=== PATIENT | female | born 1970 | race Asian ===

== ENCOUNTER 2018-08-30 05:48 | Day surgery (SDC) | payer MEDICARE, OTHER ==
[~2018-08-30] VITALS: Ht 157.5 cm; Wt 57.0 kg
[~2018-08-30 05:48] MED LIST: CALC600T24 PO; DIVA-16 PO; DOCU250C68 PO; ERGO2000 PO; LEVO88TA3 PO; LIPA1CAP6 PO; LORA-444 PO; METF-849 PO; OLAN15TA7 PO; OLAN7.5T5 PO; POLY17PO28 PO; TOPI100T11 PO; [UNRECOGNIZED DRUG - OTHER]
[2018-08-30 07:11] VITALS: Ht 157.5 cm; Wt 57.0 kg
--- NOTE | 2018-08-30 07:32 | PREAC ---
Date/Time of Note Date/Time of Note DATE: 08/30/18 TIME: 07:31 Anesthesia Eval and Record Evaluation Time Pre-Procedure Interview DATE: 08/30/18 TIME: 07:31 Age 48 Sex female NPO: 8 hrs Preoperative diagnosis screening Planned procedure colonoscopy Past Medical History Past Medical History: Includes (congenital rubella) Cardio: HTN Endo: Diabetes Hepatic: Hepatitis GI: GERD Heme: Anemia, Other (thalassemia) Surgery & Anesthesia Issues No known issue Meds Anticoagulation: No Beta Emelyn within 24 hr: No Reason Beta Emelyn not given: Pt. not on B-Emelyn Reported Medications Metformin* (Glucophage*) 500 Mg Tab, 500 MG PO WITH LUNCH DINNER, #60 TAB 05/19/16 Levothyroxine Sodium* (Levothyroxine Sodium*) 88 Mcg Tablet, 88 MCG PO BEFORE BREAKFAST, #30 TAB 05/19/16 Docusate Sodium* (Dok*) 250 Mg Capsule, 250 MG PO BID, #60 CAP 05/19/16 [id number]* (Wanda PINTO* 24,000) 24,000 L-76,000-120,000 Unit Capsule.dr, 1 CAP PO WITH MEALS, CAP 05/19/16 Lorazepam* (Ativan*) 2 Mg Tablet, 2 MG PO BID PRN for AGITATION, #30 TAB 05/19/16 Olanzapine* (Olanzapine*) 7.5 Mg Tablet, 7.5 MG PO DAILY, #30 TAB 05/19/16 Olanzapine* (Olanzapine*) 15 Mg Tablet, 15 MG PO DAILY, TAB 05/19/16 Calcium Carbonate* (Calcium Carbonate*) 600 MG Ca Tab, 600 MG PO, TAB 05/19/16 Polyethylene Glycol* (Polyethylene Glycol*) 17 Gm Powd.pack, 8.5 GM PO DAILY, #30 PACKET 05/19/16 Ergocalciferol (Vitamin D2) (VITAMIN D2) 2,000 Unit Tablet, 2000 UNIT PO, TAB 05/19/16 [Vread] No Conflict Check 05/19/16 Topiramate* (Topiramate*) 100 Mg Tablet, 100 MG PO BID, TAB 05/19/16 Discontinued Reported Medications Divalproex Sodium* (Divalproex Sodium*) 500 Mg Tablet.dr, 500 MG PO QID, #120 TAB 05/19/16 Meds reviewed: Yes Allergies Coded Allergies: Latex, Natural Rubber (Verified Allergy, Intermediate, RASH, 08/30/18) brompheniramine (Verified Allergy, Intermediate, RASH, 08/30/18) divalproex sodium (Verified Allergy, Intermediate, RASH, 08/30/18) Uncoded Allergies: TAPE (Allergy, Intermediate, RASH, 08/30/18) Allergies Reviewed: Yes Labs/Studies Labs Reviewed: Reviewed by anesthesiologist test: Negative Pre-procedure Exam Airway: Adequate mouth opening, Adequate thyromental dist Mallampati: Mallampati II Teeth: Normal Lung: Normal Heart: Normal ASA Physical Status ASA physical status: 2 Emergency: None Planned Anesthetic General/MAC: MAC Planned Pain Management Parenteral pain med Pre-operative Attestations Prior to commencing anesthesia and surgery, the patient was re-evaluated, there was verification of: *The patient's identity *The results of appropriate recent lab work and preoperative vital signs *The above evaluation not changing prior to induction *Anesthetic plan, risk benefits, alternative and complications discussed with patient/family; questions answered; patient/family understands, accepts and wishes to proceed. MICHELLE SMIMONS MD Aug 30, 2018 07:32
[2018-08-30] MEDS ORDERED: PROPOFOL 40 ML ONE (08:57)
[2018-08-30] MEDS ORDERED: LIDOCAINE 2% (SDV) 5 ML INJ ONE (08:57)
[2018-08-30 09:00] VITALS: BP 141/74; PULSE 85; RESP 22
[2018-08-30] MEDS ORDERED: ONDANSETRON 4 MG INJ IV PRN (09:00)
--- NOTE | 2018-08-30 09:33 | PAC ---
Date/Time of Note Date/Time of Note DATE: 08/30/18 TIME: 09:33 Post-Anesthesia Notes Post-Anesthesia Note Last documented vital signs Vital Signs Date Temp Pulse Resp B/P (MAP) Pulse Ox O2 O2 Flow FiO2 Time Delivery Rate 08/30/18 96.9 85 22 141/74 100 Room Air 09:00 (96) Activity: WNL Respiratory function: WNL Cardiovascular function: WNL Mental status: Baseline Pain reasonably controlled: Yes Hydration appropriate: Yes Nausea/Vomiting absent: Yes Comments BP: 139/88 HR: 96 RR: 15 T: 98 SaO2: 100% MICHELLE SIMMONS MD Aug 30, 2018 09:33
[2018-08-30] MEDS ORDERED: EPHEDrine SULFATE 50 MG/5 ML SYG ONE (09:40)
[2018-08-30 09:54] VITALS: BP 149/89; PULSE 83; RESP 24
== END 2018-08-30 15:48 | disposition home or self-care (01) ==
LOC: GIL 05:48
PROVIDERS: ATTEND Internal Medicine Gastroenterology
DX: Z12.11 Encounter for screening for malignant neoplasm of colon (principal); K64.8 Other hemorrhoids; K63.5 Polyp of colon; E11.9 Type 2 diabetes mellitus without complications; I10 Essential (primary) hypertension
CPT/HCPCS: 82962; 84703; 88305